=== PATIENT | male | born 1960 | race Caucasian/White ===

== ENCOUNTER 2024-02-12 11:29 | Emergency (ER) | payer OTHER, SELFPAY ==
--- NOTE | ~2024-02-12 | CT_ITS ---
EXAMINATION: CT HEAD W/O IV CONTRAST CT CERVICAL SPINE W/O IV CONTRAST CLINICAL INFORMATION: History of fall, head strike. COMPARISON: None TECHNIQUE: Head - Contiguous axial imaging of the head was performed from the skull base to the vertex without the administration of intravenous contrast, and axial images are reconstructed at 0.6 mm, 2 mm and 5 mm slice thickness. Cervical spine - A volumetric, helical CT acquisition of the cervical spine was obtained without contrast; in addition to the standard set of axial images, multiplanar reformatted images were provided in the coronal and sagittal imaging planes. This CT examination was performed using dose optimization techniques as appropriate, variously including the following: *Automated exposure control *Adjustment of mA and/or kV according to patient size (this includes techniques or standardized protocols for targeted exams where dose is matched to indication/reason for exam; i.e. extremities or head) *Use of iterative reconstruction technique DLP: 1326 mGy-cm (total) FINDINGS: HEAD: No acute intracranial findings. Stone to white matter differentiation is preserved. No evidence of intracranial hemorrhage, major vascular territory infarction, focal mass effect or midline shift. The ventricles have normal size and configuration. No hydrocephalus or extra-axial fluid collections. A left frontal scalp/subgaleal hematoma measures approximately 3.5 x 1.6 x 5.5 cm. The calvarium is intact. Incidentally noted are mucous retention cysts of each maxillary sinus. The mastoid air cells and middle ear cavities are clear. The temporomandibular joints are intact. The orbits and globes are unremarkable. CERVICAL SPINE: The craniocervical junction is normal. The occipital condyles, dens and atlantodental articulation are intact. The vertebral body heights and alignment are maintained. No fractures in the anterior or posterior elements. No prevertebral soft tissue edema or soft tissue hematoma. Small anterior vertebral osteophytes are noted at multiple levels. The intervertebral disc heights are overall well preserved. There is mild multilevel facet arthropathy. No evidence of any significant stenosis of the cervical spinal canal. Thyroid gland is normal. There are no acute findings within the visualized lung apices. No pneumothorax. CT/CT cervical spine wo IV con IMPRESSION: * Left frontal scalp hematoma without calvarial fracture. * No acute intracranial pathology. * No fracture or malalignment in the cervical spine.
[2024-02-12 11:47] VITALS: BP 149/90; PULSE 87; RESP 18; TEMP 36.6; O2SAT 95; BMI 31.2
--- NOTE | 2024-02-12 11:47 | ED_ITS ---
HPI - Head Injury General Chief complaint: Fall Stated complaint: fall, head inj @ work 02/11 Time Seen by Provider: 02/12/24 15:49 Source: patient and RN notes reviewed Mode of arrival: ambulatory Limitations: no limitations History of Present Illness ED Provider: KIMBERLEE CannonCC HPI Narrative: This is a [id number]-male who presents to the ER with complaints of head strike which occurred today. While pt was at work, he was on a ladder and the ladder kicked out from under him and he ultimately landed onto his left side, striking the left side of his head on the concrete floor. He denies LOC. He is not on AC. He denies any headache, dizziness, blurred vision, weakness, numbness, tingling, neck pain. Denies SOB or CP. He felt good prior to the fall, no presyncopal symptoms. Denies taking any medications prior to arrival. No other complaints or concerns at this time. MD Complaint: head injury and fall Onset (ago): hour(s) Mechanism of Injury: fall and work related injury Place: work Loss of Consciousness: no Location of injury: frontal Radiation: none Other Injuries: none Associated symptoms: denies other symptoms Related Data Allergies Allergy/AdvReac Type Severity Reaction Status Date / Time No Known Allergies Allergy Verified 02/12/24 11:48 Review of Systems 2 Review of Systems: Yes all other systems are reviewed and are negative Constitutional: Constitutional: Reports as per [facility] Social History Social History Advance Directives: No Advance Directives Information Provided: No Do you have a plan to hurt others: No Plan Physical Exam 2 Vital Signs: Vital Signs: Last Vital Signs Temp 96.9 F 02/12/24 17:37 Pulse 87 02/12/24 17:37 Resp 18 02/12/24 17:37 BP 150/87 H 02/12/24 17:37 Pulse Ox 96 02/12/24 17:37 O2 Del Method Room Air 02/12/24 17:37 BMI result Body Mass Index 31.2 Const: General: cooperative, comfortable and no acute distress O rientation/consciousness: patient oriented x3 Limitations: no limitations HEENT: Head images: 1. Large hematoma noted to the left forehead with mild TTP, no fluctuance. No bony step off or deformity. No facial bone tenderness. No orbital bony TTP or bony stepoff Ears: hearing grossly normal bilaterally and TM's normal bilaterally General nose exam: Normal external nose present Face and sinus: Yes normal facial exam Mouth: Normal oral and palatal mucosa present, oropharynx normal and moist mucous membranes Throat: Yes posterior oropharynx normal Eyes: General: appearance normal, both eyes and all related structures E yelids: Yes eyelids normal Conjunctivae: conjunctivae normal Sclerae: s clerae normal Pupils: Equal, round and reactive pupils present EOM: EOMs intact bilaterally Neck: Other: no c spine tenderness, full ROM of the neck Neck: Yes normal visual inspection, Yes full ROM and Yes no lymphadenopathy Lymphatic: no lymphadenopathy noted Chest: Chest palpation & inspection: normal inspection of the chest Resp: Effort & Inspection: normal respiratory effort and able to speak in complete sentences Auscultation: clear to auscultation bilaterally, no crackles, no rales, no rhonchi and no wheezes Cardio: Rate: regular rate Rhythm: regular rhythm Heart sounds: S1 normal heart sound present and S2 normal heart sound present GI: Inspection: Yes normal to inspection Skin: General skin exam: no rashes or lesions noted Trauma: no lacerations or abrasions Wounds: no wounds Neuro: General: patient oriented x3 and moves all extremities Cranial nerves: Yes Equal, round and reactive pupils present and Yes Midline tongue present Cognition (Neuro): normal cognition Gait exam (Neuro): Normal gait present Motor exam (neuro): 5/5 motor strength present throughout and Pronator motor function not present Coordination: [id number] test normal and [id number] test normal Romberg Test: Negative Extrem: General: Yes normal to inspection Right upper extremity: normal to inspection Left upper extremity: normal to inspection Right lower extremity: normal to inspection Left lower extremity: normal to inspection Course Course Course Narrative: This is an RME: Additional HPI, ROS, PE not included below will be deferred to primary provider. RME assessment and note performed by: America Dukes PA-C This is a 63-year-old male who presents emergency room after fall off ladder approximately 4 ft. He states that the latter kicked out from underneath him and he fell landing onto the left side of his head. He has a large head hematoma. He is neurologically intact. No C-spine tenderness. He has not on blood thinners. Plan: CT head and neck, further ER evaluation needed. Reevaluation(s) Reevaluation #1: CT negative for intracranial process, large scalp hematoma noted, c spine with no acute injury. No changes in neurologic status. Discussed with patient. He remains asymptomatic and hematoma is decreasing in size with ice. Given return precautions. Pt understands and agrees with plan. Stable for d/c, Medical Decision Making Medical Decision Making MDM Narrative: This is a [id number]-male who presents to the ER after mechanical fall off of a ladder. He struck the left side of his forehead on concrete maryjane. No LOC. No headache, dizziness. +Hematoma noted to left forehead. No bony tenderness. He is A&Ox4. VSS. Given large hematoma and headstrike, will obtain CT head and neck to r/o any acute process. Plan: CT head and neck Differential Diagnosis Differential Diagnoses: The differential diagnosis associated with the presentation includes ICH, SDH, hematoma, concussion, c spine fx - unlikely Radiology Impression Discussion of test interpretation with radiology: I have reviewed the radiologist's reading. Radiologist Impression: CT/CT head/brain wo IV con IMPRESSION: * Left frontal scalp hematoma without calvarial fracture. * No acute intracranial pathology. * No fracture or malalignment in the cervical spine. Dictated By: External Record Review External record reviewed: Inpatient record, Office record, Outpatient record, Prior outpatient labs, Prior outpatient radiology, Primary care record and Outside ED record Discharge Plan Discharge Clinical Impression: Closed head injury, Traumatic hematoma of forehead Patient Disposition: Home, Self-Care Instructions: Head Injury (ED), Hematoma (ED) Additional Instructions: You were seen in the emergency department after falling off a ladder. Your CT of your head, and neck show a large frontal scalp hematoma, however no fracture, or intracranial process seen. No fracture or malalignment of your neck. Please rest, ice, and drink plenty of fluids. Mental and physical rest can be beneficial for your healing process. You likely will develop increased bruising, apply ice pack to the area for relief. You may take Tylenol as needed for symptoms. If any new or worsening symptoms occur including but not limited to severe headache, dizziness, changes in vision, please seek emergent care. Interventions: ED Discharge Assessment Last Done: 02/12/24 17:37 Discharge Date/Time: 02/12/24 17:38 Print Language: Italian
[2024-02-12 15:44] VITALS: BP 150/87; PULSE 87; RESP 18; TEMP 36.1; O2SAT 96
[2024-02-12 17:37] VITALS: BP 150/87; PULSE 87; RESP 18; TEMP 36.1; O2SAT 96
== END 2024-02-12 17:38 | disposition home or self-care (01) ==
PROVIDERS: Emergency Provider Emergency Medicine; PCP Physician Assistant Medical
DX: S00.93XA Contusion of unspecified part of head, initial encounter (principal); M54.2 Cervicalgia; R51.9 Headache, unspecified; W11.XXXA Fall on and from ladder, initial encounter; Y93.89 Activity, other specified; Y92.89 Other specified places as the place of occurrence of the external cause; Y99.0 Civilian activity done for income or pay
CPT/HCPCS: 70450; 72125; 99282; 99284